=== PATIENT | female | born 2000 | race Caucasian/White ===

== ENCOUNTER 2019-08-10 11:32 | Emergency (ER) | payer SELFPAY ==
[2019-08-10 11:33] VITALS: BP 102/56; PULSE 98; RESP 16; TEMP 36.4; O2SAT 98; BMI 21.4
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
--- NOTE | 2019-08-10 11:55 | NURSING ---
NO OLD EKGS
[2019-08-10] MEDS: Naproxen 500 MG Tablet PO (12:49)
[2019-08-10 12:52] VITALS: PULSE 92; RESP 17; O2SAT 99
== END 2019-08-10 12:53 | disposition home or self-care (01) ==
PROVIDERS: Emergency Provider Emergency Medicine
DX: S20.219A Contusion of unspecified front wall of thorax, initial encounter (principal); S83.91XA Sprain of unspecified site of right knee, initial encounter; V43.63XA Car passenger injured in collision with pick-up truck in traffic accident, initial encounter; Y93.9 Activity, unspecified; Y92.9 Unspecified place or not applicable
CPT/HCPCS: 71046; 73564; 93005; 99283

== ENCOUNTER 2020-11-07 07:52 | Emergency (ER) | payer MEDICAID, SELFPAY ==
[2020-11-07 07:52] VITALS: BP 120/73; PULSE 85; RESP 16; TEMP 36.6; O2SAT 100; BMI 17.7
--- NOTE | 2020-11-07 08:42 | CT_ITS ---
STUDY: CT ABDOMEN AND PELVIS WITH CONTRAST REASON FOR EXAM: Female, 20 years old. 3 day history of RLQ pain -- IV PO Contrast RADIATION DOSAGE (If Supplied By Facility): CTDIvol = ( 9.35 ) mGy, DLP = ( 269.03 ) mGycm TECHNIQUE: Transaxial images were obtained from the dome of the diaphragm to the symphysis pubis with oral contrast. Oral and amp; IV Gastrografin and amp; 75mL Isovue-300 was administered. Sagittal and coronal images were reconstructed. Individualized dose optimization techniques were used for this CT. COMPARISON: None. FINDINGS: The visualized lung bases are unremarkable. The visualized portions of the heart are within normal limits. Normal liver. Normal gallbladder and extrahepatic biliary system. Normal spleen. Normal pancreas. Normal bilateral adrenal glands. Normal right kidney. Normal left kidney. Normal visualized stomach. Normal small intestine. Normal colon. The appendix is not definitely identified. Normal abdominal aorta. Normal inferior vena cava. Normal retroperitoneum. Normal urinary bladder. Free fluid is seen in the pelvis. I suspect a ruptured right ovarian cyst. Correlation with ultrasound is recommended. Normal abdominal wall. Normal osseous structures. CT/Abdomen/Pelvis WITH Contrast IMPRESSION: Free fluid in the pelvis. I suspect a ruptured right ovarian cyst. The appendix was not identified. Electronically Signed: Indio Paulson MD at 10:50 EDT , Service support ,
[2020-11-07 08:51] LABS: Absolute Lymphocyte Count 1.76 X10^3/uL (0.83-4.51); Absolute Neutrophil Count 3.1 X10^3/uL (2.0-7.7); Basophil# 0.07 X10^3/uL; Basophil% 1.2 % (0-1); Eosinophil# 0.29 X10^3/uL; Eosinophils% 5.1 % (0-5); Hematocrit 45.2 % (37-47); Hemoglobin 14.9 g/dL (12.0-15.0); Lymphocyte # 1.76 X10^3/ul (4.0); Mean Corpuscular Hgb 31.8 pg (27.0-32.0); Mean Corpuscular Volume 96.6 fL (81-99); Mean Platelet Vol. 10.8 fl (6.2-12.0); Monocyte# 0.45 X10^3/uL; Monocyte% 7.9 % (0-10); NRBC Flagged by Analyzer 0 % (0-5); Neutrophil # 3.09 X10^3/uL (2.7-7.7); Neutrophil % 54.6 % (47-70); POSITIVE COUNT YES; RBC Distribution Width CV 11.8 % (11.6-14.6); RBC Distribution Width SD 42.1 fl (35.1-43.9); Red Blood Count 4.68 M/mm3 (4.2-5.4); White Blood Count 5.7 K/mm3 (4.4-11.0)
[2020-11-07 08:54] LABS: Internal QC Validated? YES +Cl - CLEAR BKGD; Pregnancy, Serum, hCG Quali. NEGATIVE Negative
[2020-11-07] MEDS: 0.9% Normal Saline 1,000 ML 1000 ML IV (09:02)
[2020-11-07] MEDS: Ondansetron 4 MG/2 ML Vial IV (09:02)
[2020-11-07 09:08] LABS: Differential Indicated SCAN CRITERIA MET
[2020-11-07 09:09] LABS: Anion Gap 4 (5-15); BUN 11 mg/dL (7-18); BUN/Creat Ratio 14.9 RATIO (10-20); Calcium,Total 8.9 mg/dL (8.5-10.1); Chloride 107 mmol/L (98-107); Creatinine, Serum 0.74 mg/dL (0.55-1.02); Differential Comment SCANNED; EST Glomerular Filtration Rate 105 mL/min (>60); Est Glom Filt Rate - Afr Amer 128 mL/min (>60); Estimated Creatinine Clearance 94.72 ml/min; Glucose 74 mg/dL (74-106); Platelet Estimate ADEQUATE (ADEQ); Potassium 3.9 mmol/L (3.5-5.1); Sodium Level 137 mmol/L (136-145)
[2020-11-07 09:24] LABS: Mucous, Urine 0 SEEN /hpf (<or=2+); Red Blood Cells-Urine 0 SEEN /hpf (0-5)
[2020-11-07 09:25] LABS: Color, Urine Straw (Yellow); Glucose, Dipstick Normal (Normal); Ketone-Dipstick Negative (Negative); Leukocyte Esterase-Dipstick 25 /ul (Negative); Nitrite-Dipstick Negative (Negative); Occult Blood-Urine 10 /ul (Negative); Protein-Dipstick Negative (Negative); Urine Bilirubin Dipstick Negative (Negative); Urine Clarity Clear (Clear); Urine Urobilinogen Normal (Normal)
[2020-11-07 09:42] LABS: Squamous Epithelial Cells - UA 0-5 SEEN /hpf (5-10); White Blood Cells 0-5 SEEN /hpf (0-5)
[2020-11-07 09:43] LABS: Bacteria 1+ /hpf (None Seen)
--- NOTE | 2020-11-07 11:00 | ED.VISSUMM ---
- ER Visit Summary Date of Service: 11/07/20 Chief Complaint: Abdominal pain History of Present Illness: The patient is a [address] [facility]. She reports that she has abdominal pain that began today. Is a sharp pain is 6 of 10 at worst and 2 out of 10 currently. Began while she was urinating. Is relieved by nothing. She denies any associated nausea, vomiting, or diarrhea. Her last bowel was today. Normal hematochezia. No dysuria or frequency. Reports her last menstrual period was a week ago. She denies any vaginal bleeding or discharge. Patient reports that 3 days ago she had some right lower quadrant pain as well, but that resolved. She does have a family history of polycystic ovarian syndrome. She has never had a pelvic ultrasound. Physical Examination: Vitals: Stable. Afebrile. General: Well-nourished and well-developed. Head: Normocephalic atraumatic. Neck: Supple, no lymphadenopathy. No JVD. Nontender. Cardiovascular: Regular rate and rhythm. No murmurs. Respiratory: No respiratory distress. Clear to auscultation bilaterally. Abdominal: Soft, minimal tenderness palpation of the right adnexal region, nondistended, normal bowel sounds. No guarding, rebound, or peritoneal signs. Back: Nontender. Extremities: Nontender, no edema. Skin: Normal color, no rash. Neurologic: Alert and oriented ?3. Cranial nerves II through XII are intact. Normal strength and sensation. Psych: Normal affect. Test Results: CBC is normal. Chem-7 is normal. UA is negative. test is negative. Clinical Impression(s) from Imaging Studies Abdomen/Pelvis CT 11/07/20 08:42 IMPRESSION: Free fluid in the pelvis. I suspect a ruptured right ovarian cyst. The appendix was not identified. Electronically Signed: Indio Paulson MD at 10:50 EDT , Service support , Emergency Department Course and Treatment: Patient refused pain or nausea medications. She is resting comfortably. Treatment Plan: Patient will be discharged with instructions to follow-up with her primary care physician in 1 to 2 days if not improving. I did discuss with her that the CT did not show her appendix. However, there are no secondary signs of appendicitis. Also discussed with her that she does appear to have a ruptured ovarian cyst and suggested that [facility] to rule out polycystic ovarian syndrome. Return to the emergency department for any worsening symptoms. Disposition: To home in improved and stable condition. Impression: 1. Right ovarian cyst rupture. This note was generated with [employer] dictation software. It may contain incorrect words, spelling, and punctuation that were not noted in review of the chart prior to signing ED Disposition - Plan for ED Patient: Disposition: Home or Assisted Living Instructions: ED Ovarian Cyst Referrals: Silvana Gerardo [Other] - 1-2 Days if not improving Additional Instructions: Follow-up with your agriculture laboratory technician in 3 to 5 days for another exam.
[2020-11-07 12:11] VITALS: BP 117/79; PULSE 87; RESP 14; O2SAT 99
== END 2020-11-07 12:12 | disposition home or self-care (01) ==
PROVIDERS: Emergency Provider Emergency Medicine
DX: N83.201 Unspecified ovarian cyst, right side (principal); F17.290 Nicotine dependence, other tobacco product, uncomplicated
CPT/HCPCS: 74177; 80048; 81001; 84703; 85025; 96361; 96374; 99284; J7030; Q9967; A4216; J2405